=== PATIENT | male | born 1990 | race Two or more races ===

== ENCOUNTER 2017-08-30 13:22 | Emergency (ER) | payer BC ==
[~2017-08-30] VITALS: Ht 172.7 cm; Wt 68.0 kg
[2017-08-30 17:12] VITALS: BP 138/57
[2017-08-30] MEDS ORDERED: HYDROcodone-ACET 10/325MG TAB PO ONE (17:45)
[2017-08-30] MEDS ORDERED: IBUPROFEN 800 MG TAB PO ONE (17:45)
[2017-08-30] MEDS ORDERED: TETANUS-DIPTH-ACEL PERTUSSIS 0.5ML SYRG IM ONE (18:30)
== END 2017-08-30 18:59 | disposition home or self-care (01) ==
LOC: ER 13:22
DX: S91.132A Puncture wound without foreign body of left great toe without damage to nail, initial encounter (principal); V89.0XXA Person injured in unspecified motor-vehicle accident, nontraffic, initial encounter; Y93.89 Activity, other specified; Y92.410 Unspecified street and highway as the place of occurrence of the external cause; Y99.8 Other external cause status; M25.462 Effusion, left knee; M21.962 Unspecified acquired deformity of left lower leg
CPT/HCPCS: 29505; 73562; 73630; 90471; 90715